=== PATIENT | female | born 1995 | race African-American/Black ===

== ENCOUNTER 2025-07-21 16:31 | Emergency (ER) | payer MEDICAID ==
[~2025-07-21] VITALS: Ht 160 cm; Wt 61.1 kg
[2025-07-21] MEDS: ERYTHROMY OPTH OINT 5mg/gm 1gm or 3.5gm tube OP ONE (17:45)
[2025-07-21 17:58] VITALS: BP 115/75; PULSE 73; RESP 17; TEMP 98.9; O2SAT 100
--- NOTE | 2025-07-21 18:01 | ED.PDOC ---
Eye-HPI HPI Comments 30 y.o female presents to the ED for a chief complaint of left eye redness associated with swelling, tenderness and white discharge that started 4 days ago. Patient reports eye has been worsening and feels like the swelling has increased. She denies usage of eye contacts, fever, chills, or recent eye trauma. Chief Complaint: Eye Problem Time Seen by MD: 17:42 Reviewed Notes: Nurses Notes, Medications, Allergies Allergies: Coded Allergies: No Known Drug Allergy (Verified Allergy, Unknown, 07/21/25) Mode of Arrival: Ambulatory Timing: Days (4) Duration: Since onset Quality: Pain, Red, Discharge, White Eye Location: Left Lids: Tender Conjunctiva: Swelling Associated signs and symptoms: Other (eye redness ) Past Medical History PAST MEDICAL HISTORY: Denies Surgical History: Denies all surgeries PLANT MANAGER History: No Pertinent PLANT MANAGER History Family History Family History: Reviewed,noncontributory to illness, No family hx of Cancer, No family hx of DM, No family hx of Heart halle, No family hx of HTN, No family hx ofKidney halle, No family hx of Liver halle, No family hx of Lung halle, No family hx of Stroke Social History Smoker: Non-Smoker Alcohol: Denies ETOH Use Drugs: Denies Drug Use Lives In: Home Constitutional: denies: chills, diaphoresis, fatigue, fever, malaise, sweats, weakness, others EENTM: reports: eye pain, eye redness; denies: blurred vision, double vision, ear bleeding, ear discharge, ear drainage, ear pain, ear ringing, hearing loss, mouth pain, mouth swelling, nasal discharge, nose bleeding, nose congestion, nose pain, photophobia, tearing, throat pain, throat swelling, voice changes, others Physical Exam General Appearance: No Apparent Distress, Normal HEENT: Scleral Icterus (L), Other (A bright red, uniformly dense bloody area on the sclera) Neck: Full Range of Motion, Non-Tender, Normal, Normal Inspection Respiratory: Chest Non-Tender, Lungs Clear, No Accessory Muscle Use, No Respiratory Distress, Normal Breath Sounds Cardiovascular: NOT DONE Breast Exam: Deferred Gastrointestinal: No Organomegaly, Non Tender, No Pulsatile Mass, Normal Bowel Sounds, Soft Genitalia: Deferred Pelvic: Deferred Rectal: Deferred Extremities: No calf tenderness, Normal capillary refill, Normal inspection, Normal range of motion, Non-tender, No pedal edema Neurologic: Alert, clean energy policy analyst II-XII nml as Tested, No Motor Deficits, Normal Affect, Normal Mood, No Sensory Deficits Cerebellar Function: Normal Reflexes: NOT DONE Skin: Dry, Normal Color, Warm Lymphatic: No Adenopathy Was a procedure done? Was a procedure done?: No EENT DIFF Eye: Conjunctivitis, Allergic, Bacterial, Viral, Corneal Abrasion, Corneal Lacerations, Foreign Body-Conjunctiva, Foreign Body-Corneal, Foreign Body- Intraocular X-Ray, Labs, Meds, VS Vital Signs Date Time Temp Pulse Resp B/P (MAP) Pulse Ox O2 Delivery O2 Flow Rate FiO2 07/21/25 17:58 73 17 100 Room Air 07/21/25 17:58 98.9 73 17 115/75 (88) 100 98.9 07/21/25 16:33 97.6 81 18 128/90 100 97.6 Current Medications Medications (Trade) Dose Ordered Sig/Iban Route Start Time Stop Time Status Last Admin Erythromycin 1 applic ONCE ONCE OP 07/21/25 17:45 07/21/25 17:46 DC 07/21/25 17:45 Time of 1ST Reevaluation: 17:55 Reevaluation 1ST: Unchanged Patient Education/Counseling: Diagnosis, Treatment, Prognosis Family Education/Counseling: No Family Present SEPSIS Sepsis Screen Date sepsis recognized/suspect: Jul 21, 2025 Time Sepsis recognized/suspect: 1633 Recent Procedure: No On Antibiotic Therapy: No Respiratory Rate >20: No Heart Rate >90: No Temp<36 C (96.8 F) or >38.3 C: No SBP <90 or MAP <65 mmHG: No New Acute Mental Status Change: No Is the patient on CPAP, BIPAP,: No Vital Signs Date Time Temp Pulse Resp B/P (MAP) Pulse Ox O2 Delivery O2 Flow Rate FiO2 07/21/25 17:58 73 17 100 Room Air 07/21/25 17:58 98.9 73 17 115/75 (88) 100 98.9 07/21/25 16:33 97.6 81 18 128/90 100 97.6 Medications Medications Dose Ordered Sig/Iban Route Start Time Stop Time Status Last Admin Dose Admin Erythromycin 1 applic ONCE ONCE OP 07/21/25 17:45 07/21/25 17:46 DC 07/21/25 17:45 Departure 1 Departure Time of Disposition: 18:52 (Patient likely with bacterial conjunctivitis left eye. We will discharge patient home with antibiotics) Impression: Primary Impression: Bacterial conjunctivitis of left eye Disposition: HOME / SELF CARE / HOMELESS Condition: Stable Additional Instructions: You have conjunctivitis of your eye. You were prescribed antibiotics. Please take as directed. For pain you can take the followinam: Ibuprofen 400mg with food Noon: Acetaminophen 1000mg 4pm: Ibuprofen 400mg with food 8pm: Acetaminophen 1000mg You should follow up with your regular doctor within one week to ensure you are doing better. If your symptoms worsen or you have any other concerns then please return to the ER. e-Prescriptions Erythromycin (Erythromycin) 5 Mg/Gm Oin 1 MG OP QID for 7 Days, #1 OIN Prov: AKILAH ANDREW MD 07/21/25 Discharged With: Self Critical Care Note Critical Care Time?: No Stability Stability form required: No I personally scribed for AKILAH ANDREW MD ([email or web address]) on 07/21/25 at 18:01. Electronically submitted by Melanie Crum ([place]). AKILAH ANDREW MD Jul 21, 2025 18:01
[2025-07-21] MEDS ORDERED: ERYTHROMY OPTH OINT 5mg/gm 1gm or 3.5gm tube ONE (18:10)
[2025-07-21] MEDS ORDERED: ERY05OO OP (18:53)
== END 2025-07-21 19:14 | disposition home or self-care (01) ==
LOC: ER 16:31
DX: H10.89 Other conjunctivitis (principal); H57.12 Ocular pain, left eye

== ENCOUNTER 2025-08-14 08:45 | Emergency (ER) | payer MEDICAID ==
[~2025-08-14] VITALS: Ht 160 cm; Wt 59.9 kg
[~2025-08-14 08:45] MED LIST: ERY05OO OP
[2025-08-14 10:18] VITALS: BP 132/83; PULSE 90; RESP 18; TEMP 97.8; O2SAT 98
[2025-08-14] MEDS ORDERED: ERY05OO OP (10:19)
--- NOTE | 2025-08-14 10:22 | ED.PDOC ---
Eye-HPI HPI Comments Patient with no known past medical history presents with complaints of eye symptoms for approximately three weeks to one month before this visit. Patient reports discharge and migraine headaches. The patient describes discharge from both eyes that occurs mostly upon waking, sometimes clear and sometimes yellow which can accumulate in the corners of the eyes. She expresses concern about eye pressure and fear of going blind. She notes previous treatment with a cream that worsened her symptoms. She denies wearing contact lenses. Denies vision changes Denies hearing changes, nausea, vomiting Denies eye pain with movement, eye pain in general, difficulty keeping eye open, feeling of something stuck in the eye, sensitivity to light Chief Complaint: Eye Problem Time Seen by MD: 09:06 Reviewed Notes: Nurses Notes, Medications, Allergies Allergies: Coded Allergies: No Known Drug Allergy (Verified Allergy, Unknown, 07/21/25) Home Meds Active Scripts Erythromycin (Erythromycin) 5 Mg/Gm Oin, 1 MG OP QID for 7 Days, #1 OIN Prov:AKILAH ANDREW MD 07/21/25 Mode of Arrival: Ambulatory Past Medical History PAST MEDICAL HISTORY: Denies Surgical History: Denies all surgeries INFORMATION MANAGEMENT SPECIALIST History: No Pertinent INFORMATION MANAGEMENT SPECIALIST History Family History Family History: Reviewed,noncontributory to illness, No family hx of Cancer, No family hx of DM, No family hx of Heart halle, No family hx of HTN, No family hx ofKidney halle, No family hx of Liver halle, No family hx of Lung halle, No family hx of Stroke Social History Smoker: Non-Smoker Alcohol: Denies ETOH Use Drugs: Denies Drug Use Lives In: Home All Other Systems: Reviewed and Negative (per hpi) Physical Exam General Appearance: No Apparent Distress, Normal HEENT: Normal ENT Inspection, PERRL/EOMI (R IOP: 18), Pharynx Normal, TMs Normal Neck: Full Range of Motion, Non-Tender, Normal, Normal Inspection Respiratory: Chest Non-Tender, Lungs Clear, No Accessory Muscle Use, No Respiratory Distress, Normal Breath Sounds Cardiovascular: No Edema, No JVD, No Murmur, No Gallop, Normal Peripheral Pulses, Regular Rate/Rhythm Breast Exam: Deferred Gastrointestinal: No Organomegaly, Non Tender, No Pulsatile Mass, Normal Bowel Sounds, Soft Genitalia: Deferred Pelvic: Deferred Rectal: Deferred Extremities: No calf tenderness, Normal capillary refill, Normal inspection, Normal range of motion, Non-tender, No pedal edema Musculoskeletal : Apperance: Normal Neurologic: Alert, egg separator II-XII nml as Tested, No Motor Deficits, Normal Affect, Normal Mood, No Sensory Deficits Cerebellar Function: Normal Reflexes: Normal Skin: Dry, Normal Color, Warm Lymphatic: No Adenopathy Was a procedure done? Was a procedure done?: No EENT DIFF Eye: Allergic, Bacterial, Chlamydial, Viral, Corneal Abrasion, Glaucoma, Hordeolum (stye), Iritis/Uveitis X-Ray, Labs, Meds, VS Vital Signs Date Time Temp Pulse Resp B/P (MAP) Pulse Ox O2 Delivery O2 Flow Rate FiO2 08/14/25 08:47 97.8 90 18 132/83 98 97.8 X-Ray, Labs, Meds, VS Comment Presentation consistent with bacterial conjunctivitis. Patient is otherwise afebrile and well-appearing without clinical evidence of pre-septal cellulitis or orbital cellulitis. No recent history concerning for corneal abrasion or retained foreign body. No corneal opacity of keratitis, no ciliary flush on exam Prescription for topical antibiotics provided. Advised that patient still considered contagious for up to 24 hours after starting antibiotics Discussed: -Frequent hand washing -Over the counter analgesics -Hydration - - Close follow up with a primary care provider or higher level of care if no improvement/worsening symptoms On reevaluation, patient had symptomatic improvement. Patient is stable for discharge at this time. External notes reviewed. Test results and diagnostic imaging interpreted. All diagnostic findings, discharge care, education and instructions provided Follow-up with PCP in 2 to 3 days Patient verbalized understanding and agreed to treatment plan Vital signs stable, afebrile, no acute distress noted Patient ambulatory with strong steady gait Advised to return precautions for any new or worsening symptoms, return to ER immediately for re-evaluation Patient is aware that the purpose of this visit was for an acute medical emergency requiring emergent stabilization. Chronic conditions, including malignancies have not been ruled out. Patient is instructed to follow up with PCP as directed and discharge instructions for continued care and workup. If unable to arrange follow-up, patient is to return to the emergency department for reassessment. Patient (parent or legal guardian if applicable) was given verbal and written discharge instructions and acknowledges understanding. Time of 1ST Reevaluation: 10:21 Reevaluation 1ST: Improved Patient Education/Counseling: Diagnosis, Treatment Family Education/Counseling: Diagnosis, Treatment SEPSIS Sepsis Screen Date sepsis recognized/suspect: Aug 14, 2025 Time Sepsis recognized/suspect: 0851 Recent Procedure: No On Antibiotic Therapy: No Respiratory Rate >20: No Heart Rate >90: No Temp<36 C (96.8 F) or >38.3 C: No SBP <90 or MAP <65 mmHG: No New Acute Mental Status Change: No Is the patient on CPAP, BIPAP,: No Vital Signs Date Time Temp Pulse Resp B/P (MAP) Pulse Ox O2 Delivery O2 Flow Rate FiO2 08/14/25 08:47 97.8 90 18 132/83 98 97.8 Departure 1 Departure Time of Disposition: 10:21 Impression: Primary Impression: Bacterial conjunctivitis of left eye Disposition: 01 HOME / SELF CARE / HOMELESS Condition: Stable e-Prescriptions Erythromycin (Erythromycin) 5 Mg/Gm Oin 1 APPLIC OP TID for 7 Days, #3.5 OIN 0 Refills Prov: SOPHIA PATEL NP 08/14/25 Critical Care Note Critical Care Time?: No Stability Stability form required: No Heart Score Heart Score: Heart Score Response (Comments) Value History N/A 0 EKG N/A 0 Age N/A 0 Risk Factors N/A 0 Troponin N/A 0 Total 0 SOPHIA PATEL NP Aug 14, 2025 10:22
== END 2025-08-14 10:25 | disposition home or self-care (01) ==
LOC: ER 08:48
DX: H10.89 Other conjunctivitis (principal); Z79.899 Other long term (current) drug therapy